=== PATIENT | male | born 1985 | race Two or more races ===

== ENCOUNTER 2022-02-14 16:29 | Emergency (ER) | payer OTHER ==
[~2022-02-14] VITALS: Ht 172.7 cm; Wt 72.0 kg
[2022-02-14 22:20] VITALS: BP 133/99
== END 2022-02-14 22:22 | disposition home or self-care (01) ==
LOC: ER 16:29
DX: S29.9XXA Unspecified injury of thorax, initial encounter (principal); R07.89 Other chest pain; V43.52XA Car driver injured in collision with other type car in traffic accident, initial encounter; Y93.89 Activity, other specified; Y92.410 Unspecified street and highway as the place of occurrence of the external cause; Y99.8 Other external cause status
CPT/HCPCS: 71045; 93005